=== PATIENT | female | born 1980 | race Caucasian/White ===

== ENCOUNTER 2017-01-12 15:41 | Emergency (ER) | payer OTHER ==
[2017-01-12 15:56] VITALS: BP 128/79; PULSE 86; RESP 18; TEMP 98; O2SAT 96
--- NOTE | 2017-01-12 16:06 | EDPHY ---
H & P Time Seen by Provider: 01/12/17 15:46 HPI/ROS: 36-year-old female presents complaining of right hand pain after closing it in the van door at [facility]. No numbness or tingling, no open wounds. Patient is having difficulty moving thumb secondary to pain and swelling. Review of systems As per HPI General no fever no chills no weakness HEENT no eye pain no eye discharge. No eye redness, no sore throat Respiratory no cough, no shortness of breath Cardiac no chest pain, no peripheral edema GI no abdominal pain, no diarrhea, no constipation, no nausea, no vomiting no flank pain, no hematuria, no dysuria Musculoskeletal no myalgias, positive joint pain Heme no easy bruising, no easy bleeding Endo no polyuria, no polydipsia Skin no rashes, no pruritus Neuro no syncope, no dizziness, no headaches Psych is no suicidal ideation, no homicidal ideation Past Medical/Surgical History: Noncontributory Social History: Three children ages 3, 6, 9 Smoking Status: Never smoked Physical Exam: 36-year-old female Alert and oriented in no acute distress nontoxic appearance, afebrile Atraumatic normocephalic Neck no JVD Lungs no respiratory distress Heart regular rate and rhythm Extremities no cyanosis clubbing edema Except right hand-good capillary refill, right thumb with swelling and right thenar eminence with swelling Tender to palpation at right thumb right thenar eminence Sensation intact Decreased range of motion secondary to pain Constitutional: Initial Vital Signs Temperature (C) 36.6 C 01/12/17 15:54 Heart Rate 86 01/12/17 15:54 Respiratory Rate 18 01/12/17 15:54 Blood Pressure 128/79 H 01/12/17 15:54 O2 Sat (%) 96 01/12/17 15:54 O2 Delivery Mode Room Air Allergies/Adverse Reactions: No Known Allergies Allergy (Unverified 02/01/10 17:14) Home Medications: Medication Instructions Recorded Lexapro 01/12/17 Medical Decision Making - Diagnostics Imaging Results: Imaging Impressions Hand X-Ray 01/12/17 15:54 Impression: No acute osseous findings. ED Course/Re-evaluation: Medical decision making and ER course Patient seen and evaluated for right hand right thumb injury after closing hand in van door X-rays ordered Negative for fracture Differential diagnosis considered Fracture, crush injury, sprain Impression Crush injury right thumb right thenar eminence no fracture Plan Right thumb spica Rest ice elevation Follow-up orthopedic hand if not improving Departure - Departure Disposition: Home, Routine, Self-Care Clinical Impression: Crushing injury of thumb, right Condition: Good Instructions: Crush Injury (ED) Additional Instructions: Rest, ice, elevation Thumb spica preformed splint for comfort After several days of rest and elevation if you feel your range of motion is still limited follow-up with Hand surgery. Referrals: NONE *PRIMARY CARE P,. [Primary Care Provider] - As per Instructions Alessandra Frankel MD [Medical Doctor] - As per Instructions
== END 2017-01-12 16:25 | disposition home or self-care (01) ==
LOC: CED 15:41
DX: S67.01XA Crushing injury of right thumb, initial encounter (principal); W23.1XXA Caught, crushed, jammed, or pinched between stationary objects, initial encounter
CPT/HCPCS: 73130-PO; L3807

== ENCOUNTER 2018-09-20 16:20 | Emergency (ER) | payer OTHER ==
[2018-09-20] MEDS ORDERED: NS 1,000 ML IV ONE (16:36)
--- NOTE | 2018-09-20 16:41 | EDPHY ---
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 She noticed throughout the day today that her heart rate was intermittently fast between 120 and 170. It seemed to normalize spontaneously. During the tachycardic episode she felt palpitations and slightly lightheaded. No syncope. The rate was confirmed by her fit bed and her feeling her pulse. He stated that it seemed regular. She has no cardiac history other than having a few PVCs during her . She wore a Holter monitor afterwards it was negative. She has not had any recent illness. She does not take any medications. She has not been using stimulants. She is training for half marathon occasionally her fit bit reads a rapid heartbeat while she is running as well up to around 200. She has not fainted while exercising. She denies bleeding. She has never had any thyroid abnormalities. No extended travel. No leg pain or swelling. No shortness of breath. She did have some tingling in her left hand that is now resolved. No significant caffeine use. Severity: Resolved Modifying factors: Resolved spontaneously REVIEW OF SYSTEMS: Constitutional: denies: chills, fever, recent illness, recent injury EENTM: denies: blurred vision, double vision, nose congestion Respiratory: denies: cough, shortness of breath Cardiac: See HPI Gastrointestinal/Abdominal: denies: abdominal pain, diarrhea, nausea, vomiting, blood streaked stools Genitourinary: denies: dysuria, frequency, hematuria, pain Musculoskeletal: denies: joint pain, muscle pain Skin: denies: lesions, rash, jaundice, bruising Neurological: denies: headache, numbness, paresthesia, tingling, dizziness, weakness Hematologic/Lymphatic: denies: blood clots, easy bleeding, easy bruising Immunologic/allergic: denies: HIV/AIDS, transplant 10 systems reviewed and negative except as noted EXAM: GENERAL: Well-appearing, well-nourished and in no acute distress. HEAD: Atraumatic, normocephalic. EYES: Pupils equal round and reactive to light, extraocular movements intact, sclera anicteric, conjunctiva are normal. ENT: TMs normal, nares patent, oropharynx clear without exudates. Moist mucous membranes. NECK: Normal range of motion, supple without lymphadenopathy or JVD. LUNGS: Breath sounds clear to auscultation bilaterally and equal. No wheezes rales or rhonchi. HEART: Regular rate and rhythm without murmurs, rubs or gallops. ABDOMEN: Soft, nontender, normoactive bowel sounds. No guarding, no rebound. No masses appreciated. BACK: No CVA tenderness, no spinal tenderness, step-offs or deformities EXTREMITIES: Normal range of motion, no pitting or edema. No clubbing or cyanosis. NEUROLOGICAL: Cranial nerves II through XII grossly intact. Normal speech, normal gait. 5/5 strength, normal movement in all extremities, normal sensation , normal reflexes PSYCH: Normal mood, normal affect. SKIN: Warm, dry, normal turgor, no visible rashes or lesions. Source: Patient Exam Limitations: No limitations - Personal History LMP (Females 10-55): 15-21 Days Ago Tetanus Vaccine Date: 2008 - Medical/Surgical History Hx Asthma: No Hx Chronic Respiratory Disease: No Hx Diabetes: No Hx Cardiac Disease: No Hx Renal Disease: No Hx Cirrhosis: No Hx Alcoholism: No Hx HIV/AIDS: No Hx Splenectomy or Spleen Trauma: No Other PMH: anxiety, pvc's with , gestational diabetes, - Family History Significant Family History: No pertinent family hx - Social History Smoking Status: Never smoked Alcohol Use: Sober Constitutional: Initial Vital Signs Heart Rate 82 09/20/18 16:24 Respiratory Rate 20 09/20/18 16:24 Blood Pressure 176/99 H 09/20/18 16:24 O2 Sat (%) 100 09/20/18 16:24 O2 Delivery Mode Room Air Allergies/Adverse Reactions: sertraline [From Zoloft] Allergy (Verified 09/20/18 16:30) Home Medications: Medication Instructions Recorded Hydroxyzine HCl 09/20/18 Medical Decision Making - Diagnostics EKG Interpretation: An EKG obtained and was read and documented in trace view. Please see trace view for full reading and report. Sinus rhythm, no acute ischemic changes or arrhythmia Imaging Results: Imaging Impressions Chest X-Ray 09/20/18 16:41 Impression: Normal chest. Imaging: Discussed imaging studies w/ nurse assessor Radiologist ED Course/Re-evaluation: 4:50 p.m. the patient had an episode here where her fit bit told her that her heart rate was 140 however on our monitor it was 70 and this was confirmed by the nurse who palpated her pulse at 68. The patient's has arrived and states that she does have a history of anxiety and has required anxiolytics in the past but is currently been managing it with exercise. 6:30 p.m. Patient's lab work is all very reassuring. She has had occasional symptoms here and her fit bit has jumped to high heart rate however on the monitor she has been in the 70s and 80s. She does have a lot of artifact occasionally that looks like an unusual atrial flutter however we are able to capture it on a running EKG and it is only in 1 lead and other leads show normal sinus rhythm. We also were able to send a picture to Dr. Anastasiia Zhang who suspects that it is just artifact. Patient and feel reassured by this and are eager to go home. We discussed follow-up and possibly Holter monitoring. Discussed indications for returning. Differential Diagnosis: Partial list of the Differential diagnosis considered include but were not limited to; anxiety, SVT, atrial flutter, electrolyte abnormality, thyroid abnormality and although unlikely based on the history and physical exam, I also considered acute coronary disease, PE, pericardial effusion, . I discussed these differential diagnoses and the plan with the patient as well as the usual and expected course. The patient understands that the diagnosis is provisional and that in medicine we are not always correct and that further workup is often warranted. Usual and customary warnings were given. All of the patient's questions were answered. The patient was instructed to return to the emergency department should the symptoms at all worsen or return, otherwise to followup with the physician as we discussed. - Data Points Laboratory Results: Laboratory Results 09/20/18 16:30 09/20/18 16:30 09/20/18 09/20/18 09/20/18 16:39 16:30 16:30 WBC RBC Hgb Hct MCV MCH MCHC RDW Plt Count MPV Neut % (Auto) Lymph % (Auto) Forest % (Auto) Eos % (Auto) Baso % (Auto) Nucleat RBC Rel Count Absolute Neuts (auto) Absolute Lymphs (auto) Absolute Monos (auto) Absolute Eos (auto) Absolute Basos (auto) Absolute Nucleated RBC Immature Gran % Immature Gran # Sodium 139 mEq/L mEq/L (135-145) Potassium 4.2 mEq/L mEq/L (3.5-5.2) Chloride 104 mEq/L mEq/L (97-110) Carbon Dioxide 26 mEq/l mEq/l (22-31) Anion Gap 9 mEq/L mEq/L (6-14) BUN 13 mg/dL mg/dL (7-23) Creatinine 0.9 mg/dL mg/dL (0.6-1.0) Estimated GFR > 60 Glucose 117 mg/dL H mg/dL (70-100) Calcium 9.6 mg/dL mg/dL (8.5-10.4) Magnesium 2.1 mg/dL mg/dL (1.6-2.3) POC Troponin I 0.00 ng/mL ng/mL (0.00-0.08) TSH 1.930 uIU/mL uIU/mL (0.465-4.680) Beta HCG, Qual NEGATIVE 09/20/18 16:30 WBC 7.14 10^3/uL 10^3/uL (3.80-9.50) RBC 4.71 10^6/uL 10^6/uL (4.18-5.33) Hgb 14.2 g/dL g/dL (12.6-16.3) Hct 42.1 % % (38.0-47.0) MCV 89.4 fL fL (81.5-99.8) MCH 30.1 pg pg (27.9-34.1) MCHC 33.7 g/dL g/dL (32.4-36.7) RDW 12.5 % % (11.5-15.2) Plt Count 274 10^3/uL 10^3/uL (150-400) MPV 10.4 fL fL (8.7-11.7) Neut % (Auto) 52.2 % % (39.3-74.2) Lymph % (Auto) 36.0 % % (15.0-45.0) Forest % (Auto) 5.7 % % (4.5-13.0) Eos % (Auto) 5.6 % % (0.6-7.6) Baso % (Auto) 0.4 % % (0.3-1.7) Nucleat RBC Rel Count 0.0 % % (0.0-0.2) Absolute Neuts (auto) 3.72 10^3/uL 10^3/uL (1.70-6.50) Absolute Lymphs (auto) 2.57 10^3/uL 10^3/uL (1.00-3.00) Absolute Monos (auto) 0.41 10^3/uL 10^3/uL (0.30-0.80) Absolute Eos (auto) 0.40 10^3/uL 10^3/uL (0.03-0.40) Absolute Basos (auto) 0.03 10^3/uL 10^3/uL (0.02-0.10) Absolute Nucleated RBC 0.00 10^3/uL 10^3/uL (0-0.01) Immature Gran % 0.1 % % (0.0-1.1) Immature Gran # 0.01 10^3/uL 10^3/uL (0.00-0.10) Sodium Potassium Chloride Carbon Dioxide Anion Gap BUN Creatinine Estimated GFR Glucose Calcium Magnesium POC Troponin I TSH Beta HCG, Qual Medications Given: Discontinued Medications Sodium Chloride (Ns) 1,000 mls @ 0 mls/hr IV EDNOW ONE; Wide Open PRN Reason: Protocol Stop: 09/20/18 16:37 Last Admin: 09/20/18 16:43 Dose: 1,000 mls Point of Care Test Results: Chemistry 09/20/18 16:39 POC Troponin I 0.00 ng/mL ng/mL (0.00-0.08) Departure - Departure Disposition: Home, Routine, Self-Care Clinical Impression: Palpitations Condition: Fair Instructions: Heart Palpitations (ED) Referrals: Malika Hyatt MD [Primary Care Provider] - As per Instructions Anastasiia Zhang MD [Medical Doctor] - 3-4 days, if not improved
--- NOTE | 2018-09-20 16:43 | CPEKG ---
Test Reason : OPEN Blood Pressure : / mmHG Vent. Rate : 079 BPM Atrial Rate : 077 BPM P-R Int : 126 ms QRS Dur : 083 ms QT Int : 369 ms P-R-T Axes : 052 065 018 degrees QTc Int : 424 ms Sinus rhythm Confirmed by Sharad Meier ([id number]) on 09/20/2018 4:42:22 PM Referred By: PHYSICIAN ED Confirmed By:Sharad Meier
[2018-09-20 17:30] LABS: PLATELET COUNT 274 10^3/uL (150-400)
[2018-09-20 18:03] VITALS: BP 111/75
== END 2018-09-20 18:35 | disposition home or self-care (01) ==
LOC: CED 16:20
DX: R00.2 Palpitations (principal); E86.9 Volume depletion, unspecified
CPT/HCPCS: 71046-PO; 84484-ER; 96360-ER

== ENCOUNTER → 2018-10-25 | Outpatient (CLI) | payer OTHER | LOC: CIMAGING 13:05 ==

== ENCOUNTER 2018-10-31 05:41 | Day surgery (SDC) | payer OTHER ==
[2018-10-31] MEDS ORDERED: ceFAZolin 2 GM/DEXTROSE 100 ML IV ONE (06:00)
[2018-10-31] MEDS ORDERED: LR 1,000 ML IV ONE (06:01)
[2018-10-31] MEDS ORDERED: BUPIVACAINE 0.5% 30 ML SDV ONE (06:59)
--- NOTE | 2018-10-31 06:59 | PDHPUP ---
History & Physical Update H&P update statement: This history and physical update is based on an assessment of the patient which was completed after admission or registration (within 24 hours), but prior to the surgery/procedure. H&P update: H&P reviewed & patient examined, no change in patient's condition since H&P completed
[2018-10-31] MEDS ORDERED: NALOXONE HCL 0.4 MG/ML INJ IVP PRN (07:06)
[2018-10-31] MEDS ORDERED: oxyCODONE IR 5 MG TAB PO PRN (07:06)
[2018-10-31] MEDS ORDERED: DEXAMETHASONE 4 MG/ML VIAL IVP PRN (07:06)
[2018-10-31] MEDS ORDERED: ALBUTEROL 3 ML DEYVIAL IH PRN (07:06)
[2018-10-31] MEDS ORDERED: MIDAZOLAM 2 MG/2 ML VIAL IVP ONE (07:06)
[2018-10-31] MEDS ORDERED: fentaNYL 100 MCG/2 ML INJ IVP PRN (07:06)
[2018-10-31] MEDS ORDERED: ONDANSETRON 4 MG/2 ML VIAL IVP PRN (07:06)
[2018-10-31] MEDS ORDERED: HYDROmorphONE/DILAUDID 2 MG/ML INJ IVP PRN (07:06)
--- NOTE | 2018-10-31 07:06 | PDANEPAE ---
ANE History of Present Illness L Breast ANE Past Medical History - Cardiovascular History Hx Hypertension: No Hx Arrhythmias: No Hx Chest Pain: No Hx Coronary Artery / Peripheral Vascular Disease: No Hx CHF / Valvular Disease: No Hx Palpitations: Yes Cardiovascular History Comment: PALPITATIONS DURING 1ST . FOLLOWED BY DR HAYES AT [facility] - Pulmonary History Hx COPD: No Hx Asthma/Reactive Airway Disease: No Hx Recent Upper Respiratory Infection: No Hx Oxygen in Use at Home: No Hx Sleep Apnea: No Sleep Apnea Screening Result - Last Documented: Negative - Neurologic History Hx Cerebrovascular Accident: No Hx Seizures: No Hx Dementia: No - Endocrine History Hx Diabetes: No Endocrine History Comment: GESTATIONAL DIABETES WITH DAUGHTER - Renal History Hx Renal Disorders: No - Liver History Hx Hepatic Disorders: No - Neurological & Psychiatric Hx Hx Neurological and Psychiatric Disorders: Yes Neurological / Psychiatric History Comment: ANXIETY - Cancer History Hx Cancer: No - Congenital Disorder History Hx Congenital Disorders: No - GI History Hx Gastrointestinal Disorders: No - Other Health History Other Health History: WEARS GLASSES FOR DRIVING - Chronic Pain History Chronic Pain: No - Surgical History Prior Surgeries: LEFT FOOT SURGERY. WISDOM TEETH. D&C X2. ANE Review of Systems Review of Systems: - Exercise capacity METS (RN): 5 METS ANE Patient History - Allergies Allergies/Adverse Reactions: sertraline [From Zoloft] Allergy (Verified 10/30/18 17:39) ITCHY RASH - Home Medications Home Medications: Hydroxyzine HCl 09/20/18 [Last Taken 10/17/18] - NPO status NPO Since - Liquids (Date): 10/30/18 NPO Since - Liquids (Time): 23:30 NPO Since - Solids (Date): 10/30/18 NPO Since - Solids (Time): 22:30 - Smoking Hx Smoking Status: Never smoked - Family Anes Hx Family Hx Anesthesia Complications: NONE ANE Labs/Vital Signs - Vital Signs Blood Pressure: 113/91 Heart Rate: 74 Respiratory Rate: 16 O2 Sat (%): 96 Height: 149.86 cm Weight: 46.72 kg ANE Physical Exam - Airway Neck exam: FROM Mallampati Score: Class 2 Mouth exam: normal dental/mouth exam - Pulmonary Pulmonary: clear to auscultation - Cardiovascular Cardiovascular: regular rate and rhythym - ASA Status ASA Status: II ANE Anesthesia Plan Anesthesia Plan: GA with mask
[2018-10-31] MEDS ORDERED: MIDAZOLAM 2 MG/2 ML VIAL ONE (07:07)
[2018-10-31] MEDS ORDERED: fentaNYL 100 MCG/2 ML INJ ONE (07:09)
[2018-10-31] MEDS ORDERED: LIDOCAINE 2% 5 ML SDV ONE (07:09)
[2018-10-31] MEDS ORDERED: PROPOFOL/EMULSION 500 MG/50 ML BOTTLE IV ONE (07:09)
[2018-10-31] MEDS ORDERED: LIDOCAINE 1% 300 MG/30 ML SDV ONE (07:17)
[2018-10-31] MEDS ORDERED: DEXAMETHASONE 4 MG/ML VIAL ONE (07:20)
[2018-10-31] MEDS ORDERED: ONDANSETRON 4 MG/2 ML VIAL ONE (07:21)
--- NOTE | 2018-10-31 08:03 | POSTOPPROG ---
Post Op Note Date of Operation: 10/31/18 Surgeon: Nona Moncada Anesthesiologist: juan Anesthesia: IV Sedation Pre-op Diagnosis: left breast mass Post-op Diagnosis: left breast mass Procedure: left breast mass excision Inf/Abcess present in the surg proc area at time of surgery?: No EBL: Minimal Specimen(s): excisional mass left breast
--- NOTE | 2018-10-31 08:05 | POSTANESTH ---
Post Anesthetic Evaluation Cardiovascular Status: Normal, Stable Respiratory Status: Normal, Stable Level of Consciousness/Mental Status: Can Participate in Eval, Mildly Sleepy, Arousable Pain Control: Adequate, Prn Tx Ordered Nausea/Vomiting Control: Adequate, Prn Tx Ordered
--- NOTE | 2018-10-31 08:20 | GOP ---
[f rep st] OPERATIVE REPORT DATE OF OPERATION: 10/31/2018 SURGEON: Nona Moncada MD ANESTHESIA: Dr. Abdiaziz Dickson/monitored anesthesia care with IV sedation. PREOPERATIVE DIAGNOSIS: Left breast mass. POSTOPERATIVE DIAGNOSIS: Left breast mass. PROCEDURE PERFORMED: Excisional biopsy, left breast. FINDINGS: Fibrous tissue. SPECIMENS: Left breast mass. ESTIMATED BLOOD LOSS: 10 cc. INDICATIONS: The patient is a 38-year-old woman, who has had weight loss and has developed a left br east mass. Ultrasound looks like normal breast parenchyma; however, due to the new nodularity, she i s very anxious and desires excision. She also has a family history of early-onset breast cancer. DESCRIPTION OF PROCEDURE: The patient was brought into the operating room, placed supine on the tabl e. Monitored anesthesia care with IV sedation was performed. Her left breast was prepped and draped in the usual sterile fashion. I infiltrated the area with 0.5% Marcaine mixed with 1% lidocaine and made an incision, created superior and inferior skin flaps. I dissected down through the skin and s ubcutaneous tissues until I encountered the mass. I excised this, which was sitting right above the pectoralis muscle. It was passed off the field and placed into formalin. Hemostasis achieved in the cavity. Marsha was placed on the muscle belly. The deep layer was closed with 3-0 Vicryl. Skin cl osed with 3-0 Vicryl followed by 4-0 Monocryl. Dermabond applied. She was awakened in the operating room, transferred to PACU in stable condition. /[id number]/MODL
[2018-10-31 09:35] VITALS: BP 107/75
== END 2018-10-31 09:40 | disposition home or self-care (01) ==
LOC: FSGY 05:41
PROVIDERS: ATTEND Surgery
PROC: 0HBU0ZX Excision of Left Breast, Open Approach, Diagnostic (ICD-10-PCS; principal; 2018-10-31 07:15)
DX: N63.20 Unspecified lump in the left breast, unspecified quadrant (principal); Z80.3 Family history of malignant neoplasm of breast
CPT/HCPCS: J0690; J1100; J2250; J2405; J2704; J3010